=== PATIENT | female | born 1990 | race Hispanic/Latino ===

== ENCOUNTER 2017-05-05 20:57 | Emergency (ER) | payer SELFPAY ==
[2017-05-05] MEDS ORDERED: Diazepam 5 MG TAB ONE (22:25)
[2017-05-05] MEDS ORDERED: Ketorolac Tromethamine 60 MG/2 ML VIAL ONE (22:25)
--- NOTE | 2017-05-05 22:40 | RAD ---
LUMBAR SPINE THREE VIEWS: History: Back pain. FINDINGS: Lumbar vertebrae maintain normal height and alignment. Disc spaces are preserved. No evidence of spon dylolisthesis. IMPRESSION: Unremarkable lumbar spine. POS: [facility]
== END 2017-05-05 22:55 | disposition home or self-care (01) ==
LOC: ERS 20:57
DX: M54.5 Low back pain (principal)
CPT/HCPCS: 72100; 96372; J1885